=== PATIENT | male | born 1990 | race Caucasian/White ===

== ENCOUNTER 2019-01-25 09:52 | Emergency (ER) | payer SELFPAY ==
--- NOTE | 2019-01-25 10:17 | ED Physician Chart ---
ED Chief Complaint/HPI - Patient Information Date Seen:: 01/25/19 Time Seen:: 10:05 Chief Complaint:: Pt is here for okay to book. History of Present Illness:: Brought in [place] [employer] officer for okay to book. Pt has h/o IV drug abuse and has had painful skin lesions in RLE for about 6 months. No known fever. Taking po well without N/V/D. Allergies:: Allergies Allergy/AdvReac Type Severity Reaction Status Date / Time No Known Allergies Allergy Verified 01/25/19 10:12 Vitals:: see Nurse Note. Historian:: Patient Family MD/PCP:: unknown LMP:: N/A Review:: Nurse's Note Reviewed ED Review of Systems - Review of Systems General/Constitutional: No fever, No chills, No weight loss, No weakness, No loss of appetite Skin: Skin lesions, No bruising Head: No headache, No light-headedness Eyes: No loss of vision, No pain, No diplopia ENT: No earache, No nasal drainage, No sore throat Neck: No swelling, No thyromegaly, No stiffness, No mass noted Cardio Vascular: No chest pain, No palpitations Pulmonary: No SOB, No cough, No wheezing GI: No nausea, No vomiting, No diarrhea, No pain G/U: No dysuria, No frequency, No hematuria Musculoskeletal: No bone or joint pain, No back pain Endocrine: No polydipsia Psychiatric: No prior psych history, No depression Hematopoietic: No bruising, No lymphadenopathy Allergic/Immuno: No urticaria, No angioedema Neurological: No syncope, No focal symptoms, No weakness, No paresthesia, No headache, No dizziness, No confusion ED Past Medical History - Past Medical History Past Medical History: No significant medical hx Family History: Heart disease (in MGF), Cancer (in father.) Social History: Smoker (Pt has been informed about health risks associated with tobacco use and has been advised to stop and has been encouraged to enroll in a smoking cessation program. Pt acknowledges understanding.), No Alcohol, Illicit Drug Use (Pt has been informed about health risks associated with illicit drug use, especially IV drug use. Pt has been advised to stop and has been encouraged to enroll in a drug detox. program. Pt acknowledges understanding.), Single, Employed, Other (lives with his fiance.) Employment:: construction. Surgical History: None Psychiatricy History: None Medication: None Family Medical History - Family Member Father History Unknown: Yes ED Physical Exam - Physical Examination General/Constitutional: Awake, Well-developed, well-nourished (male), Alert, No distress, Ambulatory Other Gen/Cons comments:: Breathes comfortably, speaks clearly, and ambulates without difficulty. Head: Atraumatic Eyes: Lids, conjuctiva normal, PERRL, EOMI Other Skin comments:: There are multiple erythematous slightly indurated lesions in both lower extremities with needle clements and peripheral erythema, especially in RLE. There is an approx. 1.3 cm open wound with trace yellow exudate noticed in proximal anterolateral R thigh with peripheral erythema. ENMT: Nasal exam nl, Oropharynx nl Neck: Nontender, No nuchal rigidity, No mass, No stridor Respiratory: Nl effort/Exclusion, Clear to Auscultation, No Wheeze/Rhonchi/Rales Cardio Vascular: No murmur, gallop, rubs (Regular rhythma with tachycardia. HR 120.) GI: No tenderness/rebounding/guarding, No organomegaly, Normal BS's, Nondistended, No mass/bruits, No McBurney tenderness : No CVA tenderness Extremities: Full ROM, normal strength in all extremities Other Extremities comments:: see also Skin exam. Neuro/Psych: Alert/oriented (oriented x 3.), No focal deficits ED Septic Shock - . Is Septic Shock (SBP<90, OR Lactate>4 mmol\L) present?: No ED Reassessment (Disposition) - Reassessment Reassessment:: 1405 Pt has been taking po well without N/V/D. Pt is alert and oriented x 3. Pt breathes comfortably, speaks clearly, and ambulates without assistance without difficulty. Lab findings have been reviewed with pt. Management plan has been discussed. Pt refuses IV and IV antibiotic afte repeated attempts have been made to insert IV for pt. Pt states that he responded well to oral antibiotic Bactrim DS in the past. He requests to go home now and does not want further observation/management in hospital. Aftercare instructions have been given. His fiance Yesi will drive pt home. Kristel ESPITIA has released the patient and does not need medical clearance for booking. Pt is no longer under police custody. Reassessment Condition:: Improved - Diagnosis Diagnosis:: H/O IV drug abuse with right thigh open wound and areas of cellulitis. Stable. - Aftercare/Follow up Instructions Aftercare/Follow-Up Instructions:: Refer to Discharge Instructions Notes:: Pt again has been advised to stop drug abuse and has been encouraged to enroll in a drug detox program. Wound care instructions have been given. F/U with Dr. Rosa or PCP of patient's choice in one day for recheck. Return to ER immediately if condition worsens or if any further questions/problems. Medication Prescribed:: Bactrim DS one tab po q12h for 10 days. Narcan nasal spray for reversal of opioid overdose was offered. Pt walked out while I was writing the prescription. Nursing staff informed me that pt decided not to have it. - Patient Disposition Discharge/Transfer:: Home Time:: 14:20 Condition at Disposition:: Stable, Improved
[2019-01-25] MEDS ORDERED: Sodium Chloride 0.9% 1,000 ML IV ONE (10:42)
[2019-01-25 11:02] LABS: % BASOPHILS 0.5 % (0.0-2.0); % LYMPHOCYTES 10.5 % (20.0-50.0); % MONOCYTES 8.5 % (2.0-10.0); % NEUTROPHILS 79.5 % (40.0-80.0); BASOPHILE ABSOLUTE 0.1 Th/cumm (0-0.2); EOSINOPHILE ABSOLUTE 0.1 Th/cmm (0.1-0.4); HEMATOCRIT 37.5 % (41.0-60); HEMOGLOBIN 12.6 gm/dL (12-16); LYMPHOCYTE ABSOLUTE 1.1 Th/cmm (1.5-3.0); MEAN CELL VOLUME 83.8 fl (80-99); MEAN CORPUSCULAR HEMOGLOBIN 28.1 pg (26.0-30.0); MEAN CORPUSCULAR HGB CONC 33.5 pg (28.0-36.0); MONOCYTE ABSOLUTE 0.9 Th/cmm (0.3-1.0); NEUTROPHILE ABSOLUTE 8.1 Th/cmm (1.8-8.0); PLATELET COUNT 323 Th/cmm (150-400); RED BLOOD COUNT 4.47 Mil/cmm (4.30-5.70); RED CELL DISTRIBUTION WIDTH 12.9 % (11.5-20.0); WHITE BLOOD COUNT 10.3 Th/cmm (4.8-10.8)
[2019-01-25 11:16] LABS: INR 1.06 (0.5-1.4)
[2019-01-25 11:24] LABS: ALB/GLOB RATIO 1.1 (1.0-1.8); ALBUMIN 4.3 gm/dL (4.2-5.5); ALKALINE PHOSPHATASE 94 U/L (34-104); ANION GAP 11.1 (7.0-16.0); BILIRUBIN,TOTAL 0.5 mg/dL (0.3-1.0); BUN - UREA NITROGEN 13 mg/dL (7-25); CALCIUM SERUM 9.9 mg/dL (8.6-10.3); CARBON DIOXIDE 27.7 mEq/L (21.0-31.0); CHLORIDE 101 mEq/L (98-107); CREATININE - SERUM 0.8 mg/dL (0.7-1.3); GFR AFRICAN-AMERICAN > 60.0 ml/min (>90); GFR NON AFRICAN-AMERICAN > 60.0 ml/min; GLUCOSE 120 mg/dL (70-105); POTASSIUM SERUM 3.8 mEq/L (3.5-5.1); SGOT 35 U/L (13-39); SGPT/ALT 76 U/L (7-52); SODIUM SERUM 136 mEq/L (136-145); TOTAL PROTEIN,SERUM 8.4 gm/dL (6.0-8.3)
[2019-01-25] MEDS ORDERED: Sulfamethoxazole/TMP 800/160mg Tab ONE (14:11)
[2019-01-25] MEDS: Sulfamethoxazole/TMP 800/160mg Tab PO ONE (14:13)
== END 2019-01-25 14:36 | disposition home or self-care (01) ==
LOC: ER 09:52
DX: S71.101A Unspecified open wound, right thigh, initial encounter (principal); L03.115 Cellulitis of right lower limb; X58.XXXA Exposure to other specified factors, initial encounter; Y93.89 Activity, other specified; Y92.89 Other specified places as the place of occurrence of the external cause; Y99.8 Other external cause status
CPT/HCPCS: 99283; 36415; 83605; 85025; 85610; 80053; 87040 ×2; J3370; J1885; J7030; Z7502